=== PATIENT | male | born 1965 | race Caucasian/White ===

== ENCOUNTER 2018-10-31 01:24 | Emergency (ER) | payer SELFPAY ==
[~2018-10-31] VITALS: Ht 198.1 cm; Wt 99.8 kg
[2018-10-31] MEDS ORDERED: NKM (01:34)
--- NOTE | 2018-10-31 01:40 | NUR ---
ED Nurse Note: Pt walked in ER with friend and c/o R toothache. Pt BP 170/98, pain level 10/10, AO x 4times, on room air no distress. LILIANAD seen Pt at bedside.
[2018-10-31 01:51] VITALS: BP 170/98
[2018-10-31] MEDS ORDERED: AMOXICILLIN500 MG ORAL (01:57)
[2018-10-31] MEDS ORDERED: HYDROCODON-ACE1 EA15 ORAL (01:57)
[2018-10-31] MEDS ORDERED: NORVASC10 MG ORAL (01:57)
[2018-10-31] MEDS ORDERED: IBUPROFEN600 MG ORAL (01:57)
--- NOTE | 2018-10-31 01:58 | Emergency Room Report ---
History of Present Illness General Chief Complaint: Toothache Source: Patient Present Illness HPI Is a 53-year-old male with no past medical history. He presents with chief complaint of dental pain. Pain is localized to the right lower wisdom tooth. He said he crack that was into for many years now but in the last week she's been hurting him and his been constant for 20 hours. Pain is 9 out of 10. Throbbing in nature. No swelling. No trauma. Radiation. Nothing made it better. Eating drinking makes it worse. Allergies: Coded Allergies: No Known Allergies (Unverified , 10/31/18) Patient History Past Medical History: none, see triage record, old chart reviewed Past Surgical History: none Pertinent Family History: none Social History: Denies: smoking Immunizations: other Reviewed Nursing Documentation: PMH: Agreed; PSxH: Agreed Nursing Documentation-PMH Past Medical History: No Stated History Hx Neurological Problems: Yes - tonsilitis Review of Systems Eye: Denies: eye pain, blurred vision ENT: Denies: ear pain, nose congestion, throat swelling Respiratory: Denies: cough, shortness of breath Cardiovascular: Denies: chest pain, palpitations Gastrointestinal: Denies: abdominal pain, diarrhea, nausea, vomiting Musculoskeletal: Denies: back pain, joint pain Skin: Denies: rash Neurological: Denies: headache, numbness Endocrine: Denies: increased thirst, increased urine Hematologic/Lymphatic: Denies: easy bruising All Other Systems: negative except mentioned in HPI Physical Exam Vital Signs Date Time Temp Pulse Resp B/P (MAP) Pulse Ox O2 Delivery O2 Flow Rate FiO2 10/31/18 01:29 98.2 79 16 190/105 98 Room Air vitals with high blood pressure Sp02 EP Interpretation: reviewed, normal General Appearance: well appearing, no apparent distress, alert Head: normocephalic, atraumatic Eyes: bilateral eye PERRL, bilateral eye EOMI ENT: hearing grossly normal, normal pharynx Neck: full range of motion, supple, no meningismus Respiratory: chest non-tender, lungs clear, normal breath sounds Cardiovascular #1: regular rate, rhythm, no murmur Gastrointestinal: normal bowel sounds, non tender, no mass, no organomegaly, no bruit, non-distended Musculoskeletal: back normal, gait/station normal, normal range of motion Psychiatric: mood/affect normal Skin: warm/dry Procedures Additional Procedure Procedure Narrative procedure: Dental block Indication: Dental pain Description: I injected 2.5 mL of 1% without epinephrine into the inferior alveolar ridge. Patient tolerated procedure w/o any complications. Medical Decision Making Diagnostic Impression: Primary Impression: Toothache Additional Impression: Hypertension Qualified Codes: I10 - Essential (primary) hypertension ER Course Patient with dental pain. This may be an exposed nerve versus infection. We' ll put him on antibiotics. Pain is much improved after dental block. Blood pressure also improved is still hypertensive. We'll put him on antihypertensive medication. He is asymptomatic. Last Vital Signs Date Time Temp Pulse Resp B/P (MAP) Pulse Ox O2 Delivery O2 Flow Rate FiO2 10/31/18 01:29 98.2 79 16 190/105 98 Room Air Status: improved Disposition: HOME, SELF-CARE Condition: Stable Scripts Amlodipine Besylate (Norvasc) 10 Mg Tablet 10 MG ORAL DAILY, #90 TAB Prov: Derrell Randle MD 10/31/18 Ibuprofen* (MOTRIN*) 600 Mg Tablet 600 MG ORAL THREE TIMES A DAY, #30 TAB 0 Refills Prov: Derrell Randle MD 10/31/18 Hydrocodone/Acetaminophen 5-325* (HYDROCODONE/ACETAMINOPHEN 5-325*) 1 Each Tablet 1 TAB ORAL Q6H PRN for For Pain, #20 TAB 0 Refills Prov: Derrell Randle MD 10/31/18 Amoxicillin* (AMOXIL*) 500 Mg Capsule 500 MG ORAL THREE TIMES A DAY, #21 CAP Prov: Derrell Randle MD 10/31/18 Patient Instructions: Dental Pain Additional Instructions: Follow-up with dentist HAZEL. Follow-up with your doctor within a week for recheck on your blood pressure. Return if symptom worsen. Derrell Randle MD Oct 31, 2018 01:58
[2018-10-31 02:04] VITALS: BP 142/87
== END 2018-10-31 02:04 | disposition home or self-care (01) ==
LOC: EMR 01:47
DX: K08.89 Other specified disorders of teeth and supporting structures (principal); I10 Essential (primary) hypertension; F17.200 Nicotine dependence, unspecified, uncomplicated
CPT/HCPCS: 99283